=== PATIENT | female | born 1990 | race Caucasian/White ===

== ENCOUNTER 2017-10-14 02:11 | Inpatient (IN) | payer OTHER ==
[2017-10-14] MEDS ORDERED: Lactated Ringer's 1,000 ML IV SCH ×2 (02:45→03:24)
[2017-10-14] MEDS ORDERED: Lidocaine 1% Inj (20ml) ONE (02:47)
[2017-10-14 02:56] VITALS: BMI 33.3
[2017-10-14] MEDS ORDERED: Oxycodone/Acetaminophen 5/325 mg Tab PO PRN ×2 (03:05→06:12)
[2017-10-14] MEDS ORDERED: Benzocaine/Menthol SPRAY TOP PRN ×2 (03:05→06:12)
[2017-10-14 03:39] LABS: BASO # 0.2 K/uL (0.0-0.2); BASO % 1.3 % (0.0-2.0); EOS % 0.1 % (0.0-4.0); HEMOGLOBIN 11.7 g/dL (12.0-16.0); LYMPH # 2.5 K/uL (1.0-4.3); LYMPH % 20.3 % (20.0-40.0); MEAN CELL VOLUME 76.3 fl (81.0-99.0); MEAN CORPUSCULAR HEMOGLOBIN 24.7 pg (27.0-31.0); MEAN CORPUSCULAR HGB CONC 32.4 g/dL (33.0-37.0); MEAN PLATELET VOLUME 8.7 fl (7.2-11.7); MONO # 0.8 K/uL (0.0-0.8); MONO % 6.7 % (0.0-10.0); NEUT # 8.9 K/uL (1.8-7.0); NEUT % 71.6 % (50.0-75.0); NRBC % 0.2 % (0.0-0.0); RBC 4.72 Mil/uL (3.80-5.20); RED CELL DISTRIBUTION WIDTH 14.3 % (11.5-14.5); WHITE BLOOD COUNT 12.4 K/uL (4.8-10.8)
[2017-10-14 05:52] VITALS: O2SAT 99
--- NOTE | 2017-10-14 08:31 | OBHP ---
Datetime: 10/14/2017 02:23 IP Adm Impression: Term, intrauterine ; Active labor IP Admit Plan: Admit to unit; Initiate labor protocol Admit Comment, IP Provider: 27 yo at 40 weeks present c/o painful ctx since 12 am e/ 2 min, regular. denies lof, vb. +FM. Denies any other pain, medical issues, no surgeries. NKDA. PNC: Dr Sorenson. VS: wnl. VE: /-2 [place]: ctxing e/ 2min. A/P: IUP 40.0 weeks, active labor. Admit to unit. Initiate labor protocol. Case discussed with Dr Matthews. Marcial PGY 1. Attending Note: Pt seen and examined with resident and I agree with the above. Pelvic Type - PN: Adequate Extremities - PN: Normal Abdomen - PN: Normal Back - PN: Normal Breast - PN: Normal Lungs - PN: Normal Heart - PN: Normal Thyroid - PN: Normal Neurologic - PN: Normal HEENT - PN: Normal General - PN: Normal Presentation-Admit: Vertex FHR - Baseline A Provider: 150 Contraction Comments Provider: e/2 min Comments, ACOG Physical Exam: Abd: Soft, NT, Bs- present Gestation - Est Wks by US: 40.0 Vital Signs Provider: Reviewed IP Chief Complaint: Uterine contractions; Maternal discomfort NICHD Variability Prov Fetus A: Moderate 6-25bpm NICHD Accel Fetus A IP Provider: [id number] FHR Category Provider Fetus A: Category I NICHD Decel Fetus A IP Provider: None Dilatation, Provider: 10 Effacement, Provider: 100 Genitourinary Exam: Normal DTRs - PN: Normal
[2017-10-14] MEDS: Multivitamin With Minerals Tab PO SCH (08:40)
[2017-10-14] MEDS ORDERED: Multivitamin With Minerals Tab PO SCH (09:00)
[2017-10-15 07:00] LABS: BASO % 0.5 % (0.0-2.0); EOS # 0.1 K/uL (0.0-0.7); EOS % 0.7 % (0.0-4.0); HEMOGLOBIN 9.2 g/dL (12.0-16.0); LYMPH # 2.5 K/uL (1.0-4.3); LYMPH % 28.2 % (20.0-40.0); MEAN CELL VOLUME 77.9 fl (81.0-99.0); MEAN CORPUSCULAR HEMOGLOBIN 25.1 pg (27.0-31.0); MEAN CORPUSCULAR HGB CONC 32.2 g/dL (33.0-37.0); MEAN PLATELET VOLUME 8.3 fl (7.2-11.7); MONO # 0.5 K/uL (0.0-0.8); MONO % 6.1 % (0.0-10.0); NEUT # 5.8 K/uL (1.8-7.0); NEUT % 64.5 % (50.0-75.0); RBC 3.66 Mil/uL (3.80-5.20); RED CELL DISTRIBUTION WIDTH 14.9 % (11.5-14.5)
[2017-10-15] MEDS ORDERED: Influenza Vaccine 18yr & older 0.5 ML/45 MCG SYR IM ONE (09:00)
--- NOTE | 2017-10-15 09:08 | OBDS ---
DELIVERY PERSONNEL Delivery Doctor: Sana Matthews MD Frame Trimmer: Ma. Alysia Ovalle RN Resident: Y.MD Bonifacio MATERNAL INFORMATION Delivery Anesthesia: None Estimated Blood Loss (ml): 200 Placenta Cultured: No Maternal Complications: Precipitous Labor (<3hrs) Provider Comments: Uncomplicated spontaneous Vaginal delivery of a viable male with BW of 328 5gms and scores of 7 and 9 delivered over small 2cm 2nd degree perineal laceration sutured with 2-0 chromic and 1% lidocaine with good cosmesis. Baby had a compound presentation with the Right hand lying beside the right side of the latter-day. EBL- 200mls. LABOR SUMMARY EDC: 10/14/2017 00:00 No. Babies in Womb: 1 Attempted: No Labor Anesthesia: None LABOR INFORMATION Reason for Induction: Not Applicable Onset of Labor: 10/14/2017 00:00 Complete Dilatation: 10/14/2017 02:30 Group B Beta Strep: Negative Steroids Given: None Reason Steroids Not Administered: Not Applicable MEMBRANES Rupture of Membranes: 10/14/2017 02:35 Length of Rupture (hrs): 0.10 Amniotic Fluid Color: Clear Amniotic Fluid Amount: Scant Amniotic Fluid Odor: Normal STAGES OF LABOR Stage 1 hrs: 2 Stage 1 min: 30 Stage 2 hrs: 0 Stage 2 min: 11 Stage 3 hrs: 0 Stage 3 min: 4 Total Time in Labor hrs: 2 Total Time in Labor min: 45 VAGINAL DELIVERY Episiotomy: None Laceration Extension: Second Degree Initial Vag Sponge Count: 5 Final Vag Sponge Count: 5 Initial Vag Sharps Count: 2 Final Vag Sharps Count: 2 Sponge Count Correct: Yes Sharps Count Correct: Yes CSECTION DELIVERY Primary Indication: N/A Secondary Indication: N/A CSection Urgency: N/A CSection Incidence: N/A Labor: N/A Elective: N/A BABY A INFORMATION Infant Delivery Date/Time: 10/14/2017 02:41 Method of Delivery: Vaginal Born in Route : No : N/A Forceps: N/A Vacuum Extraction: N/A Shoulder Dystocia : No SHOULDER DYSTOCIA BABY A Delivery Date/Time: 10/14/2017 02:41 PRESENTATION/POSITION BABY A Presentation: Cephalic Cephalic Presentation: Vertex PLACENTA INFORMATION BABY A Placenta Delivery Time : 10/14/2017 02:45 Placenta Method of Delivery: Spontaneous Placenta Status: Delivered SCORES BABY A Heart Rate 1 min: >100 bpm Resp Effort 1 min: Slow, Irregular Reflex Irritability 1 min: Cough or Sneeze or Pulls Away Muscle Tone 1 min: Active Motion Color 1 min: Blue/Pale Resuscitation Effort 1 min: Tactile Stimulation SCORE 1 MIN: 7 Heart Rate 5 min: >100 bpm Resp Effort 5 min: Good Cry Reflex Irritability 5 min: Cough or Sneeze or Pulls Away Muscle Tone 5 min: Active Motion Color 5 min: Body [place], Extremities Blue Resuscitation Effort 5 min: Tactile Stimulation SCORE 5 MIN: 9 INFANT INFORMATION BABY A Gestational Age at Delivery: 40.0 Gestational Status: Term Infant Outcome : Liveborn Infant Condition : Stable Infant Sex: Male IDENTIFICATION/MEDS BABY A ID Band Number: [id number] ID Band Location: Left Leg; Left Arm WEIGHT/LENGTH BABY A Birthweight (gms): 3285 Weight (lb): 7 Weight (oz): 4 CORD INFORMATION BABY A No. Cord Vessels: 3 Nuchal Cord : N/A Cord Blood Taken: Yes Suction: Mouth
[2017-10-15] MEDS: Multivitamin With Minerals Tab PO SCH (09:35)
--- NOTE | 2017-10-15 11:14 | OBPPN ---
Datetime: 10/15/2017 11:13 PP Pain Prov: Within normal limits PP Nausea Prov: Denies PP Flatus Prov: Yes PP Breasts Prov: Not Done PP Heart Prov: Normal PP Lungs Prov: Normal PP Abdomen/Uterus Prov: Normal PP Lochia Prov: Not Done PP Vulva/Perineum Prov: Not Done PP CVA Tenderness Prov: Normal PP Extremities Prov: Normal PP Progress Prov: Normal PP Impression Prov: Normal progression PP Plan Prov: Continue present management PP Progress Note Prov: Patient did well without complaints reports minimal discomfort ambulating ful ly without difficulty Vital signs stable afebrile Uterus firm below the umbilicus Extremities no Homans day 1 Encourage ambulation, regular diet, analgesics as needed, anticipate discharge in a.m. Vital Signs Provider PP: Reviewed
[2017-10-15] MEDS ORDERED: Pneumococcal 23-Valent Vaccine IM ONE (14:00)
[2017-10-16] MEDS ORDERED: Pneumococcal 23-Valent Vaccine IM ONE (09:00)
[2017-10-16] MEDS: Multivitamin With Minerals Tab PO SCH (09:07)
[2017-10-16 21:30] VITALS: BP 129/79; PULSE 75; RESP 20; TEMP 98.7
== END 2017-10-16 13:20 | disposition home or self-care (01) | DRG 775 ==
LOC: H.EROB2 02:11 → H.L&D 02:55 → H.OB/GYN 04:30
PROVIDERS: ADMIT Obstetrics & Gynecology; ATTEND Obstetrics & Gynecology
PROC: 10E0XZZ Delivery of Products of Conception, External Approach (ICD-10-PCS; principal; 2017-10-14)
PROC: 0KQM0ZZ Repair Perineum Muscle, Open Approach (ICD-10-PCS; 2017-10-14)
PROC: 4A1HXCZ Monitoring of Products of Conception, Cardiac Rate, External Approach (ICD-10-PCS; 2017-10-14)
DX: O32.6XX0 Maternal care for compound presentation, not applicable or unspecified (principal); O62.3 Precipitate labor; Z37.0 Single live birth; O70.1 Second degree perineal laceration during delivery; Z3A.40 40 weeks gestation of pregnancy